=== PATIENT | male | born 1940 | race Two or more races ===

== ENCOUNTER 2017-01-06 13:03 | Emergency (ER) | payer OTHER ==
[~2017-01-06] VITALS: Ht 142.2 cm; Wt 48.0 kg
[2017-01-06] MEDS ORDERED: LOSA50TA20 PO (13:13)
[2017-01-06] MEDS ORDERED: LOVA10TA PO (13:13)
[2017-01-06] MEDS ORDERED: CARV3.1242 PO (13:13)
[2017-01-06] MEDS ORDERED: LIDOCAINE HCL 1%/EPI 1:200,000 30 ML VIAL MC ONE (17:30)
[2017-01-06 20:14] VITALS: BP 145/61
== END 2017-01-06 20:18 | disposition home or self-care (01) ==
LOC: ER 13:03
DX: L02.413 Cutaneous abscess of right upper limb (principal); E78.00 Pure hypercholesterolemia, unspecified; I10 Essential (primary) hypertension; I51.9 Heart disease, unspecified
CPT/HCPCS: 10060; 73070; 87070; 87205; 99285; X7700; Z7610